=== PATIENT | female | born 1995 | race African-American/Black ===

== ENCOUNTER 2018-07-12 12:20 | Emergency (ER) | payer OTHER ==
--- NOTE | 2018-07-12 12:22 | PDOC ---
History of Present Illness - General Chief Complaint: Redness To Affected Area Stated Complaint: LEFT RING FINGER REDNESS Time Seen by Provider: 07/12/18 12:22 History Source: Patient Exam Limitations: No Limitations - History of Present Illness Initial Comments: HPI: 23 y/o female presenting to ER complaining of pain, swelling, redness, and purulent discharge from left 4th finger. Symptoms started last week after removing a hangnail. Denies nail biting. Denies history of similar or poor wound healing. Denies fevers, chills, or diaphoresis. No difficulty moving the digit. No redness to pad of finger or to hand. Pt was able to express purulent discharge last night and this morning. Medical Hx: - Pt denies past medical history. Denies prescription medications. Surgical Hx: - Pt denies past surgical history. Past History - Past Medical History Allergies/Adverse Reactions: Allergies Allergy/AdvReac Type Severity Reaction Status Date / Time [place] Allergy Mild Itching Verified 07/12/18 12:21 Home Medications: Ambulatory Orders NK [No Known Home Medication] 07/16/14 - Suicide/Smoking/Psychosocial Hx Smoking Status: No Smoking History: Never smoked Number of Cigarettes Smoked Daily: 0 Hx Alcohol Use: No Drug/Substance Use Hx: No Substance Use Type: None Hx Substance Use Treatment: No Review of Systems - Review of Systems Able to Perform ROS?: Yes Comments:: In addition to that documented in the HPI above, the additional ROS was obtained : Constitutional: Denies fevers or chills ENMT: Denies sore throat CV: Denies chest pain Resp: Denies SOB GI: Denies vomiting or diarrhea Skin: Per HPI *Physical Exam - Physical Exam Comments: Constitutional: Well-developed, well-nourished adult female in no acute distress or obvious discomfort. Found sitting upright in hospital hallway chair. Alert and oriented x4. Answered all questions appropriately and completely. Speech was non-labored, non-pressured. Head: Normocephalic. No obvious external signs of trauma. Eyes: Sclerae white. EARS: Hearing grossly intact. NOSE: No nasal discharge. Neck: Supple, trachea is midline. Cardiovascular: Regular rate and regular rhythm. No murmur, rubs, clicks, or gallops. Peripheral pulses: Radial pulses full. Respiratory: Breathing unlabored. Equal chest rise and fall. Clear to auscultation bilaterally. No stridor, no wheezing, no rhonchi. Skin / MSK: Erythema, warmth, likely small purulent collection under nail. No erythema or pain to pad of finger. Compartment does not feel tight. No streaking down digit, palm, or arm. Good active and passive movements of digit, including passive extension. No vesicular lesions. Psych: Affect: appropriate. Mood: normal. Medical Decision Making - Medical Decision Making *Reviewed vital signs, nursing notes, and prior visit documentation (if available). 23 y/o female presenting with paronychia to finger. No history of poor wound healing or MRSA infections. No systemic symptoms. Afebrile. Vitals unremarkable for hypotension or tachycardia. Low suspicion for felon, tenosynovitis, herpetic loly, or other deep space infection based on physical exam. Finger soaked in warm water then cleaned with betadine. Area of concern lifted from nail with 18g IV catheter. No significant purulent discharge expressed. Suspect the pt already expressed majority of purulence prior to arrival. No antibiotics indicated. Discussed physical exam findings with pt. Answered all questions. Provided return precautions. Pt expressed verbal understanding and agreement with plan to discharge home with outpatient follow up as needed. *DC/Admit/Observation/Transfer Diagnosis at time of Disposition: Acute paronychia of finger of left hand - Discharge Dispostion Disposition: HOME Condition at time of disposition: Good Decision to Admit order: No - Referrals - Patient Instructions Additional Instructions: You were seen today for an infection to the tip of your finger. The infection is likely localized to the area around the nail. It should heal on it's own over the next several days. Keep the area clean and dry. Watch for signs of worsening infection as we discussed. You can take over the counter Tylenol or Advil as needed for pain. Take as directed on the package insert. Do not exceed the recommended dosage. Follow up with your primary care doctor as needed. Go to the nearest emergency department if your condition worsens or you feel like you need additional emergency evaluation. - Post Discharge Activity
[2018-07-12 12:25] VITALS: BP 123/76; PULSE 85; TEMP 98.5; BMI 26.8
--- NOTE | 2018-07-12 13:09 | PDOC ---
Attending Attestation - Resident Resident Name: Markell Rick - ED Attending Attestation I have performed the following: I have examined & evaluated the patient, The case was reviewed & discussed with the resident, I agree w/resident's findings & plan, Exceptions are as noted - HPI HPI: 07/12/18 13:08 23 yo F no pmjhx here wtih co left ring finger infection. pt state she had a hang nail she picked since got infected. she did squeeze some pus out of it earlier today. no f/c not diabetic not taking any medication.s - Physicial Exam PE: 07/12/18 13:09 awake alert NAD left hand finger with small paronychia, overgrown skin. mild redness . some swelling to distal phalynx only . n/v intact. - Medical Decision Making 07/12/18 13:09 paronycia. drained and lifted. small bloody purulence. dc home with bacitracin and soaks.
== END 2018-07-12 13:03 | disposition home or self-care (01) ==
LOC: FER 12:20
DX: L03.012 Cellulitis of left finger (principal)
CPT/HCPCS: 99281-25

== ENCOUNTER 2018-09-07 12:25 | Emergency (ER) | payer OTHER ==
--- NOTE | 2018-09-07 12:33 | PDOC ---
History of Present Illness - General Chief Complaint: Redness To Affected Area Stated Complaint: REDNESS TO LEFT THIGH Time Seen by Provider: 09/07/18 12:33 History Source: Patient Exam Limitations: No Limitations - History of Present Illness Initial Comments: 09/07/18 12:37 23 year old female with no PMH presented to ED for redness to thigh x2 days worsening. Pt admitted to chills last night, which have resolved. Pt denied fever, vomiting, lightheadedness. Pt had similar rash to right thigh and paronychia in the last year. Allergies: NKDA Past History - Past Medical History Allergies/Adverse Reactions: Allergies Allergy/AdvReac Type Severity Reaction Status Date / Time [place] Allergy Mild Itching Verified 09/07/18 12:31 Home Medications: Ambulatory Orders Cephalexin Monohydrate [Keflex -] 500 mg PO Q6H #20 capsule 09/07/18 COPD: No - Immunization History Immunization Up to Date: Yes - Suicide/Smoking/Psychosocial Hx Smoking Status: No Smoking History: Never smoked Have you smoked in the past 12 months: No Number of Cigarettes Smoked Daily: 0 Hx Alcohol Use: No Drug/Substance Use Hx: No Substance Use Type: None Hx Substance Use Treatment: No Review of Systems - Review of Systems Able to Perform ROS?: Yes Comments:: 09/07/18 12:36 General: denied fever, chills, night sweats, generalized weakness. HEENT: denied sore throat, rhinorrhea, ear pain. Heart: denied chest pain, palpitations, syncope, diaphoresis. Respiratory: denied shortness of breath, cough, sputum production, hemoptysis. Abdomen: denied abdominal pain, nausea, vomiting, diarrhea, constipation, blood in stool. : denied dysuria, increased urinary frequency, hematuria, urinary incontinence , flank pain. Back: denied back pain. Musculoskeletal: denied joint pain, muscle pain, joint swelling. Neurological: denied headache, dizziness, numbness, tingling, weakness. Skin: admitted to redness to thigh. denied laceration, abrasion. *Physical Exam - Physical Exam Comments: 09/07/18 12:36 Constitutional: Well-nourished, Well-developed, appearing stated age. HEENT: head is normocephalic, atraumatic. EOMI. PERRLA. Neck: supple. Full ROM. Heart: regular rhythm. no murmurs, rubs or gallops. Lungs: clear to auscultation bilaterally. no crackles, rhonchi or wheezing. no stridor. Abdomen: soft, nontender. normal bowel sounds. no rebound, guarding, masses. Extremities: Peripheral pulses intact. No lower extremity edema. Neurological: CN 2-12 grossly intact. Moves all four extremities. Psych: awake, alert, oriented x3. Follows commands. Answers questions appropriately. Skin: 12x8 cm confluent erythematous nonfluctuant circular area to lateral thigh. Procedures - Bedside Ultrasound Bedside Ultrasound: Skin Other: Mild cobblestoning, no hypodense area of fluid collection. Medical Decision Making - Medical Decision Making 09/07/18 12:51 23 year old female with no PMH presented to ED for rash to left thigh. Initial Vital Signs Temp Pulse Resp BP Pulse Ox 98.8 F 98 H 18 122/87 100 09/07/18 12:25 09/07/18 12:25 09/07/18 12:25 09/07/18 12:25 09/07/18 12:25 Afebrile. No tachycardia. No tachypnea. Normal BP. No hypoxia on room air. Labs ordered: none Imaging ordered: none Medications ordered: Keflex 500 mg first time dose, tylenol 650 mg PO Bedside ultrasound findings consistent with cellulitis without abscess. Pt given first dose antibiotic. Discharge prescriptions: Keflex Pt discharged. *DC/Admit/Observation/Transfer Diagnosis at time of Disposition: Cellulitis - Discharge Dispostion Disposition: HOME Condition at time of disposition: Stable Decision to Admit order: No - Prescriptions Prescriptions: Cephalexin Monohydrate [Keflex -] 500 mg PO Q6H #20 capsule - Referrals Referrals: Marti Abdalla MD [Primary Care Provider] - - Patient Instructions Additional Instructions: You have a cellulitis, an infection of the skin. I have sent a prescription to your pharmacy for an antibiotic, pick it up today and take as advised on label. You were given the first dose today in the Emergency Department. Follow up with Dr. Abdalla tomorrow at your appointment, mention you were seen in the Emergency Department for cellulitis and placed on an antibiotic. Bring all prescription bottles with you to you appointment. Bring all paperwork given to you to your appointment. Take Tylenol over the counter for your pain, take as advised on labels. Return to the Emergency Department for increasing pain, vomiting, fever , chest pain, shortness of breath, lightheadedness like you may pass out or any other new, worsening or concerning symptoms. - Post Discharge Activity Forms/Work/School Notes: Back to Work
[2018-09-07 12:34] VITALS: BP 122/87; PULSE 98; TEMP 98.8; BMI 26.8
[2018-09-07] MEDS ORDERED: ACETAMINOPHEN 325 MG TABLET (FP) PO ONE (12:51)
[2018-09-07] MEDS ORDERED: CEPHALEXIN MONOHYDRATE 500 MG CAPSULE (UD) PO ONE (12:51)
[2018-09-07] MEDS ORDERED: ACETAMINOPHEN 325 MG TABLET (FP) ONE ×2 (12:53→12:55)
[2018-09-07] MEDS ORDERED: CEPHALEXIN MONOHYDRATE 500 MG CAPSULE (UD) ONE ×2 (12:53→12:55)
--- NOTE | 2018-09-07 13:23 | PDOC ---
Attending Attestation - Resident Resident Name: Morelia Mart - HPI HPI: 09/07/18 13:54 Pt presents to the ED complaining of painful rash to her L upper thigh that began two days ago. Denies fever, nausea or vomiting. States that rash has been getting larger. No prior history of abscess or cellulitis. - Physicial Exam PE: 09/07/18 13:55 agree with resident exam. Pt is alert and oriented and in no acute distress. + 12 cm area of erythema on her left posterior upper thigh, with no underlying fluctuance or induration. - Medical Decision Making 09/07/18 14:53 Pt presents to the ED with cellulitis to the upper thigh, without systemic infection. Will treat with keflex. Patient has follow up with PMD tomorrow.
== END 2018-09-07 13:00 | disposition home or self-care (01) ==
LOC: FER 12:25
DX: L03.90 Cellulitis, unspecified (principal)
CPT/HCPCS: 99283-25

== ENCOUNTER 2018-09-30 10:59 | Emergency (ER) | payer OTHER ==
[2018-09-30 11:10] VITALS: BP 127/85; PULSE 102; TEMP 99.3; BMI 25.8
[2018-09-30] MEDS ORDERED: SODIUM BICARBONATE 8.4% 50 MEQ/50 ML VIAL ONE (11:16)
[2018-09-30] MEDS ORDERED: LIDOCAINE HCL 2% (20ML MULTI-DOSE VIAL) NR ONE (11:17)
--- NOTE | 2018-09-30 11:53 | PDOC ---
History of Present Illness - General Chief Complaint: Wound Stated Complaint: ABCESS TO LEFT SIDE OF NECK Time Seen by Provider: 09/30/18 11:11 History Source: Patient Exam Limitations: No Limitations - History of Present Illness Initial Comments: 09/30/18 11:47 CC: abscess left neck HPI: had cellulitis of leg early September, Rx bactrim and keflex and resolved Now with abscess on left neck for about 2 days, swollen lump, painful and red, some drainage no fever or chills no Hx of MRSA PMHx: cellulitis ROSx: no f/c no boudreaxu no n/v/d no hx of prior skin abscess or drainage no skin rash Past History - Past Medical History Allergies/Adverse Reactions: Allergies Allergy/AdvReac Type Severity Reaction Status Date / Time [place] Allergy Mild Itching Verified 09/30/18 11:00 Home Medications: Ambulatory Orders Cephalexin [Keflex] 500 mg PO QID #28 capsule 09/30/18 Sulfamethoxazole/Trimethoprim [Bactrim Ds -] 1 tab PO BID #14 tablet 09/30/18 COPD: No Diabetes: No - Immunization History Immunization Up to Date: Yes - Suicide/Smoking/Psychosocial Hx Smoking Status: No Smoking History: Never smoked Have you smoked in the past 12 months: No Number of Cigarettes Smoked Daily: 0 Information on smoking cessation initiated: No Hx Alcohol Use: Yes (occassional) Drug/Substance Use Hx: No Substance Use Type: None Hx Substance Use Treatment: No *Physical Exam - Vital Signs Last Vital Signs Temp Pulse Resp BP Pulse Ox 99.3 F 102 H 16 127/85 95 09/30/18 11:00 09/30/18 11:00 09/30/18 11:00 09/30/18 11:00 09/30/18 11:00 - Physical Exam Comments: 09/30/18 11:49 Aand o x3, nad perrl op nl left neck with 2 cm indurated abscess with punctate drainage in center no adenopathy no other skin rash Moderate Sedation - Procedure Monitoring Vital Signs: Procedure Monitoring Vital Signs Temperature 99.3 F 09/30/18 11:00 Pulse Rate 102 H 09/30/18 11:00 Respiratory Rate 16 09/30/18 11:00 Blood Pressure 127/85 09/30/18 11:00 O2 Sat by Pulse Oximetry (%) 95 09/30/18 11:00 Procedures - Incision and Drainage I&D Site: Left: Other (neck) Betadine cleansed: No (chlorhexidine skin prep) Anesthesia: other Volume(ml): 10 (with neut) Blade Size: 11 Plain Packing: Yes Complications: none Dressing: Yes Progress: 09/30/18 11:51 skin prep chlorhex 2% lido neut local ring block 11 blade with cheesy pus expressed packing and dressing tolerated well Medical Decision Making - Medical Decision Making 09/30/18 11:53 neck abscess, I and D, no systemic illness, no surrounding cellulitis rx antibiotics for recurrent skin infection, although I and D is primary treatment, discussed risks of benefits of antibiotics and patient feels strongly that she wants treatment, asked for IV antibiotics but explained this is clearly not indicated will Rx bactrim and keflex *DC/Admit/Observation/Transfer Diagnosis at time of Disposition: Neck abscess - Discharge Dispostion Disposition: HOME Condition at time of disposition: Stable Decision to Admit order: No - Prescriptions Prescriptions: Cephalexin [Keflex] 500 mg PO QID #28 capsule Sulfamethoxazole/Trimethoprim [Bactrim Ds -] 1 tab PO BID #14 tablet - Referrals Referrals: Marti Abdalla MD [Primary Care Provider] - - Patient Instructions Printed Discharge Instructions: DI for Incision and Drainage of a Skin Abscess Additional Instructions: you were treated for a skin abscess on your neck the treatment was lancing and drainage a culture was sent and should be back in 48 hours you will be called if you need a change in antibiotics take the bactrim 2x daily and the cephalexin 4x daily for one week follow up with your primary care doctor return to the ER for any serious or progressive symptoms such as fever or progression of the abscess - Post Discharge Activity
[2018-09-30] MEDS ORDERED: CEPHALEXIN MONOHYDRATE 500 MG CAPSULE (UD) PO ONE (11:58)
[2018-09-30] MEDS ORDERED: SULFAMETHOXAZOLE/TRIMETHOPRIM 800MG/160MG D.S. TABLET PO ONE (11:58)
[2018-09-30] MEDS ORDERED: SODIUM BICARBONATE 8.4% 50 MEQ/50 ML VIAL NR ONE (12:00)
[2018-09-30] MEDS ORDERED: LIDOCAINE HCL 2% (50ML VIAL) INF ONE (12:00)
[2018-09-30] MEDS ORDERED: SULFAMETHOXAZOLE/TRIMETHOPRIM 800MG/160MG D.S. TABLET ONE (12:02)
[2018-09-30] MEDS ORDERED: CEPHALEXIN MONOHYDRATE 500 MG CAPSULE (UD) ONE (12:02)
[2018-09-30] MEDS ORDERED: IBUPROFEN 600 MG TABLET (FP) PO ONE ×2 (12:04→12:05)
== END 2018-09-30 12:13 | disposition home or self-care (01) ==
LOC: FER 10:59
PROC: 0H94XZZ Drainage of Neck Skin, External Approach (ICD-10-PCS; principal; 2018-09-30)
DX: L02.11 Cutaneous abscess of neck (principal)
CPT/HCPCS: 87070; 87186; 87205; 99282-25

== ENCOUNTER 2019-01-21 11:14 | Emergency (ER) | payer OTHER ==
--- NOTE | 2019-01-21 11:22 | PDOC ---
History of Present Illness - General Chief Complaint: Pain Stated Complaint: RIGHT THIGH BUMP & PELVIS PAIN Time Seen by Provider: 01/21/19 11:16 History Source: Patient, Old Records Exam Limitations: No Limitations - History of Present Illness Initial Comments: 01/21/19 11:36 23 year old female with prior hx of cellulitis p/w "bumps on right inner, posterior and left inner thigh. Pt reports that in September 2018, she was seen for similar symptoms where she was dx'd with cellulitis and successfully treated with keflex and bactrim. (Please see Dr. Leija's note from that time) She reported that she started noticing similar several days ago. She reports that she has been going to the gym more often. No fevers, chills. Also c/o of R pelvic pain. Denies dysuria, hematuria or vaginal discharge. Pt denies being recently sexually active (pt's fiance is in the and currently deployed). Stated that this occurred 4 days ago and is a dull mild pain. No fevers, chills. Denies flank pain. Pt's LMP January 07, 2019. Past History - Past Medical History Allergies/Adverse Reactions: Allergies Allergy/AdvReac Type Severity Reaction Status Date / Time [place] Allergy Mild Itching Verified 01/21/19 11:16 Home Medications: Ambulatory Orders Cephalexin Monohydrate [Keflex -] 500 mg PO Q6H #28 capsule 01/21/19 Naproxen 500 mg PO BID PRN #20 tablet 01/21/19 Sulfamethoxazole/Trimethoprim [Bactrim Ds -] 1 tab PO BID #14 tablet 01/21/19 COPD: No Diabetes: No - Immunization History Immunization Up to Date: Yes - Suicide/Smoking/Psychosocial Hx Smoking Status: No Smoking History: Never smoked Have you smoked in the past 12 months: No Number of Cigarettes Smoked Daily: 0 Hx Alcohol Use: Yes (occassional) Drug/Substance Use Hx: No Substance Use Type: None Hx Substance Use Treatment: No Review of Systems - Review of Systems Able to Perform ROS?: Yes Comments:: 01/21/19 11:40 GENERAL/CONSTITUTIONAL: [No fever or chills. No weakness. No weight change.] HEAD, EYES, EARS, NOSE AND THROAT: [No change in vision. No ear pain or discharge. No sore throat.] CARDIOVASCULAR: [No chest pain or shortness of breath.] RESPIRATORY: [No cough, wheezing, or hemoptysis.] GASTROINTESTINAL: [No nausea, vomiting, diarrhea or constipation. No rectal bleeding.] : Right pelvic pain GENITOURINARY: [No dysuria, frequency, or change in urination.] MUSCULOSKELETAL: [No joint or muscle swelling or pain. No neck or back pain.] SKIN AND BREASTS: [No easy bruising.] + Skin rash NEUROLOGIC: [No headache, vertigo, loss of consciousness, or loss of sensation.] PSYCHIATRIC: [No depression or anxiety.] ENDOCRINE: [No increased thirst. No abnormal weight change.] HEMATOLOGIC/LYMPHATIC: [No anemia, easy bleeding, or history of blood clots.] ALLERGIC/IMMUNOLOGIC: [No hives or skin allergy. No latex allergy.] *Physical Exam - Physical Exam Comments: 01/21/19 11:41 GENERAL: Awake, alert, and fully oriented, in no acute distress HEAD: No signs of trauma EYES: EOMI, sclera anicteric, conjunctiva clear ENT: Auricles normal inspection, hearing grossly normal, nares patent, Moist mucosa NECK: Normal ROM, supple, ABDOMEN: Soft, Mcburney point negative. Mildly TTP right mid/suprapubic pain towards inguinal crease. No guarding, no rebound. No masses EXTREMITIES: Normal range of motion, no edema. No clubbing or cyanosis. No cords, erythema, or tenderness NEUROLOGICAL: Cranial nerves II through XII grossly intact. Normal speech, normal gait SKIN: Warm, Dry, normal turgor. Several small 0.5 x 0.5 cm erythematous, mildly tenderness rashes. One on the right posterior upper thigh. Another one noted on left inner/medial thigh. No fluctuance or induration. Right posterior upper thigh has very minimal drainage. 01/21/19 11:45 [employer]: No vaginal discharge or bleeding noted. Cervical os closed. No adenxal or cervical motion tenderness. Normal [employer] exam. ED Treatment Course - LABORATORY CBC & Chemistry Diagram: 01/21/19 11:40 01/21/19 11:40 Medical Decision Making - Medical Decision Making 01/21/19 11:42 Vital Signs Temp Pulse Resp BP Pulse Ox 99.3 F 120 H 15 135/82 100 01/21/19 11:15 01/21/19 11:15 01/21/19 11:15 01/21/19 11:15 01/21/19 11:15 1. Skin infection: No fluctuance or induration appreciated. Pt is overall nontoxic appearing. Given its good response to keflex and bactrim on previous visit, will treat as cellulitis with same medications. 2. Right pelvic pain: Given its timing from her previous menstrual period, I suspect that this may be ovarian cyst / Mittleschmertz pain. Urine test negative. Given these symptoms, will investigate with labs and transvaginal ultrasound. Reassess. 01/21/19 13:14 CBC, BMP 01/21/19 11:40 01/21/19 11:40 CMP Sodium 136 mmol/L (136-145) 01/21/19 11:40 Potassium 4.0 mmol/L (3.5-5.1) 01/21/19 11:40 Chloride 103 mmol/L (98-107) 01/21/19 11:40 Carbon Dioxide 25 mmol/L (21-32) 01/21/19 11:40 Anion Gap 8 MMOL/L (8-16) 01/21/19 11:40 BUN 14.0 mg/dl (7-18) 01/21/19 11:40 Creatinine 0.7 mg/dl (0.55-1.3) 01/21/19 11:40 Est GFR (CKD-EPI)AfAm 139.57 01/21/19 11:40 Est GFR (CKD-EPI)NonAf 120.42 01/21/19 11:40 Random Glucose 102 mg/dl (74-106) 01/21/19 11:40 Calcium 9.2 mg/dl (8.5-10) 01/21/19 11:40 Total Bilirubin 0.6 mg/dl (0.2-1) 01/21/19 11:40 AST 15 U/L (15-37) 01/21/19 11:40 ALT 12 U/L (13-61) L 01/21/19 11:40 Alkaline Phosphatase 55 U/L (45-117) 01/21/19 11:40 Total Protein 7.9 g/dl (6.4-8.2) 01/21/19 11:40 Albumin 4.0 g/dl (3.4-5.0) 01/21/19 11:40 Urine Test Results Urine Color Yellow 01/21/19 11:20 Urine Appearance Clear 01/21/19 11:20 Urine pH 6.0 (4.5-8) 01/21/19 11:20 Urine Protein Negative (NEGATIVE) 01/21/19 11:20 Urine Glucose (UA) Negative (NEGATIVE) 01/21/19 11:20 Urine Ketones Negative (NEGATIVE) 01/21/19 11:20 Urine Blood 1+ (NEGATIVE) H 01/21/19 11:20 Urine Nitrite Negative (NEGATIVE) 01/21/19 11:20 Urine Bilirubin Negative (NEGATIVE) 01/21/19 11:20 Ur Leukocyte Esterase Negative (NEGATIVE) 01/21/19 11:20 Urine RBC 5-10 /hpf (0-4) 01/21/19 11:20 Urine WBC 0-2 (NEGATIVE) 01/21/19 11:20 Urine test negative. Pt is noted with 5-10 RBCs with 1+ blood, could renal colic be within the differential? Spiral CT ordered for further evaluation. Transvaginal ultrasound results pending. 01/21/19 14:12 Ultrasound reviewed. Slightly thickened endometrium and trace free pelvic fluid. 01/21/19 14:21 CT scan of abdomen and pelvis reviewed. No acute findings. At this time, will treat the cellulitis. The patient's abdominal pain could've been 2/2 ovarian cyst rupture. Will treat it as such at the moment though no cysts were demonstrated on ultrasound. The cysts could have ruptured leading to the trace free pelvic fluid. Otherwise, the patient is nontoxic appearing and comfortable. Copies of the results given. Naproxen PRN. 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 01/21/19 14:30 *DC/Admit/Observation/Transfer Diagnosis at time of Disposition: Cellulitis Qualifiers: Site of cellulitis: unspecified site Qualified Code(s): L03.90 - Cellulitis, unspecified Abdominal pain Qualifiers: Abdominal location: right lower quadrant Qualified Code(s): R10.31 - Right lower quadrant pain - Discharge Dispostion Disposition: HOME Condition at time of disposition: Good Decision to Admit order: No - Prescriptions Prescriptions: Cephalexin Monohydrate [Keflex -] 500 mg PO Q6H #28 capsule Naproxen 500 mg PO BID PRN #20 tablet PRN Reason: Pain Sulfamethoxazole/Trimethoprim [Bactrim Ds -] 1 tab PO BID #14 tablet - Referrals Referrals: Marti Abdalla MD [Primary Care Provider] - - Patient Instructions Printed Discharge Instructions: DI for Cellulitis -- Adult Additional Instructions: Your abdominal pain may potentially have been by an ovarian cyst. However, your CT scan and ultrasound demonstrates no concerning findings. At this time, you may take 500 mg naproxen every 12 hours as needed for pain. It may take several days before your symptoms improve. For your skin, please take the two antibiotics as prescribed (cephalexin and bactrim) Please take the medications as prescribed. Follow up with your doctor. If you notice that the redness or rash is getting worse, despite taking the antibiotics, please return to the ER. - Post Discharge Activity
[2019-01-21 11:24] VITALS: BP 135/82; PULSE 120; TEMP 99.3; BMI 25.8
[2019-01-21 11:42] LABS: HCG,QUALITATIVE URINE Negative
[2019-01-21 12:07] LABS: BASO % 0.5 % (0-2.0); EOS % 0.8 % (0-4.5); HEMATOCRIT 37.1 % (32.4-45.2); HEMOGLOBIN 12.3 GM/dl (10.7-15.3); LYMPH % 26.5 % (8-40); MCH 29.4 pg (25.7-33.7); MCHC 33.1 g/dl (32.0-36.0); MEAN CELL VOLUME 88.8 fl (80-96); MEAN PLT VOLUME 9.5 fl (7.5-11.1); MONO % 10.1 % (3.8-10.2); NEUT % 62.1 % (42.8-82.8); PLATELET COUNT 319 K/MM3 (134-434); RBC 4.18 M/mm3 (3.60-5.2); RDW 13.2 % (11.6-15.6); WHITE BLOOD COUNT 3.7 K/mm3 (4.0-10.8)
[2019-01-21 12:08] LABS: EPITHELIAL CELLS FEW /hpf
[2019-01-21 12:11] LABS: BILIRUBIN,TOTAL 0.6 mg/dl (0.2-1); CALCIUM 9.2 mg/dl (8.5-10); CREATININE 0.7 mg/dl (0.55-1.3); TOT PROT 7.9 g/dl (6.4-8.2)
[2019-01-21] MEDS ORDERED: CEPHALEXIN 250 MG/5 ML ORAL SUSPENSION PO ONE (14:21)
[2019-01-21] MEDS ORDERED: SULFAMETHOXAZOLE/TRIMETHOPRIM 800MG/160MG D.S. TABLET PO ONE (14:21)
[2019-01-21] MEDS ORDERED: SULFAMETHOXAZOLE/TRIMETHOPRIM 800MG/160MG D.S. TABLET ONE (14:24)
[2019-01-21] MEDS ORDERED: CEPHALEXIN MONOHYDRATE 500 MG CAPSULE (UD) ONE (14:25)
== END 2019-01-21 14:38 | disposition home or self-care (01) ==
LOC: FER 11:14 → SUPCPDRO 11:14 → FER 14:38
DX: L03.90 Cellulitis, unspecified (principal); R10.31 Right lower quadrant pain
CPT/HCPCS: 36415; 74176-TC; 76830-TC; 80053; 81003; 81015; 84703; 85025; 87086; 99283-25